=== PATIENT | female | born 1945 | race Caucasian/White ===

== ENCOUNTER 2017-02-25 21:27 | Emergency (ER) | payer MEDICARE, OTHER ==
[2017-02-25 22:16] LABS: BLOOD UREA NITROGEN 20 mg/dL (7-17); CALCIUM 9.7 mg/dL (8.4-10.2); CHLORIDE 105 mmol/L (98-107); EST GLOMERULAR FILTRATION RATE > 60 mL/min; GLUCOSE 139 mg/dL (70-100); POTASSIUM 3.3 mmol/L (3.5-5.1); SODIUM 140 mmol/L (137-145)
[2017-02-25] MEDS ORDERED: POTASSIUM EFF 25 MEQ TABLET ONE (22:50)
--- NOTE | 2017-02-25 22:53 | ER NURSING DOCUMENTATION ---
Nurse's Notes [facility] Name:Lien Infante Age:71 yrs Sex:Female :1945 Arrival Date:02/25/2017 Time:21:27 BedTrauma-B Private MD: Diagnosis:Syncope;Dehydration;Hypokalemia Presentation: 02/25 21:30 Acuity: HARRY 2 rh 22:04 Presenting complaint: Patient states: Pt went for two hikes today and had a glass of rh wine with dinner. Pt is visiting from [place], she has a syncopal episode tonight when she stood up post dinner, she felt it coming on (she's had this happen in the past) and the family lowered her to the ground gently. Transition of care: Home. 22:04 Method Of Arrival: Private Vehicle Triage Assessment: 22:06 General: Appears in no apparent distress, Behavior is cooperative. Pain: Denies pain. rh EENT: Oral mucosa is dry. Neuro: Level of Consciousness is awake, alert, obeys commands, Oriented to person, place, time, event, Reports a syncopal episode. Cardiovascular: Capillary refill < 3 seconds Chest pain is denied. Cardiovascular: Rhythm is sinus rhythm. Respiratory: Airway is patent Respiratory effort is even, unlabored, Denies shortness of breath. Respiratory: Breath sounds are clear bilaterally. GI: Abdomen is non- distended Denies diarrhea, nausea, vomiting. : No deficits noted. Derm: Skin is intact, is healthy with good turgor, Skin is pink, warm & dry. Historical: - Allergies: No known drug Allergies; - Home Meds: 1. Aspirin Oral 2. Synthroid Oral - PMHx: None; - PSHx: THYROIDECTOMY; - Tetanus: < 10 years. - Ebola Screening: : Patient negative for fever greater than or equal to 101.5 degrees Fahrenheit, and additional compatible Ebola Virus Disease symptoms. - Immunization history: Flu Vaccine < 1 year Pneumococcal vaccine is up to date. - Social history: Smoking status: Patient states was never smoker of tobacco. Screenin:07 Infectious Disease Risk None. Abuse screen: Denies threats or abuse. Denies injuries rh from another. Nutritional screening: No deficits noted. Assessment: 22:07 See Triage Assessment done by same RN. 22:52 Reassessment: Patient states feeling better. Patient states symptoms have improved. rh Vital Signs: 21:49 BP 114 / 68 (auto/); rh 21:53 Pulse 73 MON; Resp 18; rh 22:07 BP 116 / 68; Pulse 78; Resp 18; Temp 98.2(O); Pulse Ox 94% on R/A; Weight 68.04 kg; rh Height 5 ft. 6 in. (167.64 cm); Pain 0/10; 22:28 Pulse 89 MON; Resp 19; Pulse Ox 94% ; rh 22:31 BP 120 / 60 (auto/); rh 22:07 Body Mass Index 24.21 (68.04 kg, 167.64 cm) rh ED Course: 21:30 Patient arrived in ED. jl 21:30 Triage completed. rh 21:36 Paramjit Viera MD is Attending Physician. jaime 21:40 Notified ED Physician of patient's arrival and chief complaint. Dr. Viera notified. rh 21:40 Pulse ox on. NIBP on. rh 21:58 Vidhya Longoria is Primary Nurse. rh 21:58 EKG done. (by ED staff). Reviewed by Vidhya Longoria. rh 22:00 Inserted peripheral IV: 20 gauge in left Wrist and blood collected. saline lock:. nf 22:07 Valuables Remains with patient Patient has correct armband on for positive rh identification. Placed in gown. Bed in low position. Call light in reach. Side rails up X 1. Administered Medications: 21:58 Drug: NS 0.9% 1000 ml; Route: IV; Rate: bolus; Site: left hand; rh 22:53 Follow up: IV Status: Completed infusion; IV Intake: 1000ml rh 22:53 Drug: Potassium Effervescent Tablet 25 mEq; Route: PO; rh 22:53 Follow up: Response: No adverse reaction rh Intake: 22:53 IV: 1000ml; Total: 1000ml. rh Outcome: 22:33 Discharge ordered by . jaime 22:51 Discharged to home ambulatory. rh 22:51 Condition: improved 22:51 Discharge Assessment: Patient awake, alert and oriented x 3. No cognitive and/or functional deficits noted. Patient verbalized understanding of disposition instructions. 22:51 Discharge instructions given to patient, Instructed on discharge instructions, follow up and referral plans. Demonstrated understanding of instructions. 22:51 IV D/Stewart 22:52 Patient left the ED. rh 06/30 14:26 Discharge F/U Call: Unable to reach: no answer mk2 Signatures: Allyssa Alvarez, RN Paramjit Cobian MD MD jm Kruger, Meg, RN RN mk2 Vidhya Longoria Jeff jl
--- NOTE | 2017-02-25 22:53 | ER PHYSICIAN DOCUMENTATION ---
Physician Documentation [facility] Name:Lien Infante Age:71 yrs Sex:Female :1945 Arrival Date:02/25/2017 Time:21:27 BedTrauma-B Private MD: Paramjit Lenz Disposition: 02/25/17 22:33 Discharged to Home/Self Care. Impression: Syncope, Dehydration, Hypokalemia. - Condition is Good. - Discharge Instructions: DEHYDRATION (6y-Adult), SYNCOPE, Unk Cause. - Medical Reconciliation form form. - Follow up: Private Physician; When: As needed; Reason: Continuance of care. - Problem is new. - Symptoms have improved. HPI: 02/25 22:00 This 71 yrs old Female presents to ER via Private Vehicle with complaints of jm Fainting. 22:00 The patient has experienced syncope. Onset: The symptom(s)/episode began/occurred just jm prior to arrival. Duration: The patient has had multiple episodes, that last 10 second(s). Context: occurred while the patient was eating. Associated injury: The patient did not suffer any apparent associated injury. Associated signs and symptoms: Pertinent positives: diaphoresis, dizziness, nausea. Current symptoms: Currently, the patient is not experiencing any symptoms. The patient has experienced similar episodes in the past, and the symptoms today are exactly the same, to when the patient was apparently diagnosed with syncope at higher altitude. . The patient has not recently seen a physician. Pt was eating when she got dizzy and fainted twice. No injuries. This has occurred in the past. Pt got to EP yesterday and drank little fluids and then waked around all day in the sun today. She had some drinks w dinner. . Historical: - Allergies: No known drug Allergies; - Home Meds: 1. Aspirin Oral 2. Synthroid Oral - PMHx: None; - PSHx: THYROIDECTOMY; - Tetanus: < 10 years. - Ebola Screening: : Patient negative for fever greater than or equal to 101.5 degrees Fahrenheit, and additional compatible Ebola Virus Disease symptoms. - Immunization history: Flu Vaccine < 1 year Pneumococcal vaccine is up to date. - Social history: Smoking status: Patient states was never smoker of tobacco. ROS: 22:00 Constitutional: Positive for fatigue, malaise, Negative for chills, fever. jaime 22:00 ENT: Negative for sinus congestion, sore throat. 22:00 Cardiovascular: Negative for chest pain, edema, orthopnea, palpitations, acute changes. 22:00 Respiratory: Negative for cough, shortness of breath. 22:00 Abdomen/GI: Positive for nausea, Negative for abdominal pain, vomiting, diarrhea. 22:00 Skin: Positive for diaphoresis. 22:00 Neuro: Positive for dizziness, syncope. 22:00 All other systems are negative. Exam: 22:00 Constitutional: The patient appears alert, awake, comfortable. 22:00 Eyes: Periorbital structures: appear normal, Conjunctiva: normal. 22:00 ENT: Mouth: Oral mucosa: dry, Voice: is normal. 22:00 Neck: Thyroid: scar, Trachea: is midline with no obvious abnormalities. 22:00 Cardiovascular: Rate: normal, Rhythm: regular. 22:00 Respiratory: Respirations: normal, Breath sounds: are normal. 22:00 Abdomen/GI: Bowel sounds: normal, Palpation: abdomen is soft and non-tender. 22:00 Musculoskeletal/extremity: Weight bearing: able to fully bear weight, Calves: are non-tender, have equal circumference. 22:00 Neuro: Mentation: is normal, Memory: is normal. 22:00 Psych: Behavior/mood is pleasant, cooperative, Affect is calm. Vital Signs: 21:49 BP 114 / 68 (auto/); rh 21:53 Pulse 73 MON; Resp 18; rh 22:07 BP 116 / 68; Pulse 78; Resp 18; Temp 98.2(O); Pulse Ox 94% on R/A; Weight 68.04 kg; rh Height 5 ft. 6 in. (167.64 cm); Pain 0/10; 22:28 Pulse 89 MON; Resp 19; Pulse Ox 94% ; rh 22:31 BP 120 / 60 (auto/); rh 22:07 Body Mass Index 24.21 (68.04 kg, 167.64 cm) rh MDM: 21:36 Patient medically screened. 23:29 Differential Diagnosis: dehydration, vesovegal episode. . Neurological re-evaluation: jaime normal neurological exam including cranial nerves, orientation, mentation, motor and sensory exam, cerebellar testing, GCS normal, and normal gait. Data reviewed: vital signs, nurses notes, lab test result(s), EKG. Test interpretation: by ED physician or midlevel provider: ECG. Counseling: I had a detailed discussion with the patient and/or guardian regarding: the historical points, exam findings, and any diagnostic results supporting the discharge/admit diagnosis, lab results, the need for outpatient follow up, with the patient's primary care provider. Medication response: The patient's symptoms have improved. Response to treatment: the patient's symptoms have resolved after treatment. ED course: Pt better after IVF. She walked around the ER w/o issues. . 23:29 Data reviewed: and as a result, I will discharge patient. ECG:. 02/25 22:17 Order name: BASIC METABOLIC PANEL; Complete Time: 22: EDMA 02/25 21:38 Order name: Iv Saline Lock; Complete Time: :58 02/25 21:38 Order name: 12-lead EKG; Complete Time: :58 02/25 21:38 Order name: Pulse Ox Continuous; Complete Time: :58 EC:29 Rhythm is regular. QRS Albia is Normal. AL interval is normal. QRS interval is normal. T jm waves are Normal. No ST changes noted. Dispensed Medications: Drug: NS 0.9% 1000 ml; Route: IV; Rate: bolus; Site: left hand; rh 22:53 Follow up: IV Status: Completed infusion; IV Intake: 1000ml 22:53 Drug: Potassium Effervescent Tablet 25 mEq; Route: PO; 22:53 Follow up: Response: No adverse reaction rh Signatures: Paramjit Viera MD MD jm Hofsess, Rachel
== END 2017-02-25 22:53 | disposition home or self-care (01) ==
LOC: ER 21:27
DX: R55 Syncope and collapse (principal); E86.0 Dehydration; E87.1 Hypo-osmolality and hyponatremia; R53.83 Other fatigue; R53.81 Other malaise; R11.0 Nausea; R61 Generalized hyperhidrosis; R42 Dizziness and giddiness; Z79.82 Long term (current) use of aspirin; Z79.899 Other long term (current) drug therapy
CPT/HCPCS: 80048; 93005; 93010; 96360; 99284; 99285